=== PATIENT | male | born 1975 | race Caucasian/White ===

== ENCOUNTER 2022-04-16 11:26 | Outpatient (CLI) | payer OTHER | END 2022-04-16 11:27 | disposition home or self-care (01) | LOC: MADRAD 11:26 | PROVIDERS: ATTEND Orthopaedic Surgery | DX: M54.50 Low back pain, unspecified (principal); M47.816 Spondylosis without myelopathy or radiculopathy, lumbar region | CPT/HCPCS: 72100 ==